=== PATIENT | male | born 1955 | race Caucasian/White ===

== ENCOUNTER 2021-04-09 13:50 | Emergency (ER) | payer MEDICAID, OTHER ==
[~2021-04-09] VITALS: Ht 165.1 cm; Wt 68.0 kg
[2021-04-09] MEDS ORDERED: ACETAMINOPHEN 650 MG SUPP.RECT RC ONE ×4 (14:15→19:06)
[2021-04-09] MEDS ORDERED: ACETAMINOPHEN 325 MG SUPP RC ONE ×2 (14:15→19:00)
[2021-04-09] MEDS ORDERED: IV NORMAL SALINE 1000 ML BAG IV ONE ×2 (14:15→15:15)
[2021-04-09] MEDS ORDERED: ACETAMINOPHEN 325 MG SUPP ONE ×2 (14:33→19:05)
[2021-04-09] MEDS ORDERED: TRAZ-257 PO (14:37)
[2021-04-09] MEDS ORDERED: ATOR20TA PO (14:37)
[2021-04-09] MEDS ORDERED: MULT-594 PO (14:37)
[2021-04-09] MEDS ORDERED: QUET25TA PO (14:37)
[2021-04-09] MEDS ORDERED: MELA5TAB PO (14:37)
[2021-04-09] MEDS ORDERED: MEMA10TA PO (14:37)
[2021-04-09] MEDS ORDERED: CARB-35 PO (14:37)
[2021-04-09 14:39] LABS: HEMATOCRIT 40.6 % (36.7-47.1); MEAN CORPUSCULAR HEMOGLOBIN 28.6 uug (23.8-33.4); MEAN CORPUSCULAR VOLUME 85.8 fL (73.0-96.2); PLATELET COUNT (AUTO) 195 K/uL (152-348)
--- NOTE | 2021-04-09 14:40 | NUR ---
EKG done, saline lock placed, labs drawn, IV hydration Tx began, Medications administered per provider order. Spouse, daughter and provider currently at bedside discussing pts status and plan.
[2021-04-09 14:43] LABS: CREATININE 1.4 mg/dL (0.6-1.3); POTASSIUM 3.8 mmol/L (3.5-5.1)
[2021-04-09 14:49] LABS: BILIRUBIN,DIRECT 0.1 mg/dL (0.0-0.2); BILIRUBIN,TOTAL 1.4 mg/dL (0.2-1.0); TOTAL PROTEIN, SERUM 6.5 g/dL (6.4-8.2)
[2021-04-09 15:04] LABS: *BILIRUBIN,URIN NEGATIVE (NEGATIVE); *BLOOD, URINE 3+ (NEGATIVE); *CLARITY,URINE SLIGHTLY CLOUDY (CLEAR); *COLOR,URINE YELLOW (YELLOW); *KETONES,URINE 1+ (NEGATIVE); LEUKOCYTE ESTERASE ,URINE 3+ (NEGATIVE); NITRITE, URINE POSITIVE (NEGATIVE); UGLUCOSE NEGATIVE (NEGATIVE)
[2021-04-09] MEDS ORDERED: CEFTRIAXONE 1 G in IV DEXTROSE 5% 50 ML IV ONE (15:15)
[2021-04-09] MEDS ORDERED: CEFTRIAXONE 1 G VIAL ONE (15:50)
[2021-04-09 16:25] LABS: BACTERIA,URINE MANY /HPF (NONE SEEN); SQUAMOUS EPITHELIAL CELL,UR FEW /HPF (NONE SEEN); WBC,URINE TNTC /HPF (0-3)
--- NOTE | 2021-04-09 16:41 | NUR ---
[facility] arranging transportating for admit. Dx: sepsis. Confirm having information needed. Julia (from [facility]) will call us with transport and bed information when it becomes available.
--- NOTE | 2021-04-09 18:07 | NUR ---
[facility] information provided by Julia. ER to ER transport to [facility]. Accepting is Dr. Johnson. [facility] trasport ETA 1900. Will call ER to give report. Number provided is [phone].
--- NOTE | 2021-04-09 19:09 | NUR ---
Given report to ARNOLD Lynn at 1830 regarding pt transfer to [place] emergency room. Pt to be admitted to [facility] ER under care of Dr. Fidencio Abraham. Pt picked up by [facility] with Ellie BARRETT at 1910. Pt in stable condition, no acute distress at this time.
--- NOTE | 2021-04-10 07:50 | NUR ---
[place] called to inform nurse of Cx results. Spoke to Debbie from [facility]. Faxed over results to number provided by Debbie. Attempted to contact POA, but was unable to.
== END 2021-04-09 19:15 | disposition short-term general hospital (02) ==
LOC: ER 13:50
DX: A41.51 Sepsis due to Escherichia coli [E. coli] (principal); N39.0 Urinary tract infection, site not specified; R65.20 Severe sepsis without septic shock; G93.41 Metabolic encephalopathy; E86.0 Dehydration; Z20.822 Contact with and (suspected) exposure to COVID-19; R00.0 Tachycardia, unspecified; N28.9 Disorder of kidney and ureter, unspecified; Z79.899 Other long term (current) drug therapy
CPT/HCPCS: 36415; 71045; 80048; 80076; 81001; 83605 ×2; 83880; 84145; 84484; 85025; 85730; 87040 ×2; 87077 ×3; 87086; 87186 ×2; 87426; 93005; 96361; 96365; 99285; J0696; J7060; 70030-TC; A4663; J3490; J7030